=== PATIENT | female | born 1980 | race Caucasian/White ===

== ENCOUNTER 2024-05-01 16:18 | Outpatient (OUT) | payer BC, SELFPAY ==
--- NOTE | 2024-05-01 16:23 | US_ITS ---
The [address] [address] Patient Name: TREVOR BARON MRN: [id number] date: 1980 Sex: F Assigned Patient Location: US Current Patient Location: LAB Accession/Order Number: [id number] Exam Date: 05/01/2024 17:29 Report Date: 05/03/2024 11:17 At the request of: LUIS ALBERTO BOWDEN Procedure: US thyroid EXAMINATION: US thyroid HISTORY: Swelling, mass or lump in head neck, R22.0,R22.1 COMPARISON: No relevant comparison available. FINDINGS: RIGHT LOBE: Normal size and echotexture. Lobe size: 4.6 x 1.2 x 1.3 cm LEFT LOBE: Normal size and echotexture. Lobe size: 4.9 x 1.4 x 1.3 cm ISTHMUS: Normal size and echotexture. Thickness: 2 mm US/US thyroid IMPRESSION: 1. Normal thyroid ultrasound. No abnormal or suspicious findings. Electronically authenticated by: NIMO HAJI Date: 05/03/2024 11:17
== END 2024-05-01 16:19 | disposition home or self-care (01) ==
LOC: US 16:18
PROVIDERS: PCP Nurse Practitioner Family; Visit Provider Nurse Practitioner Family
DX: R22.0 Localized swelling, mass and lump, head (principal); R22.1 Localized swelling, mass and lump, neck
CPT/HCPCS: 76536

== ENCOUNTER 2024-05-04 07:08 | Outpatient (OUT) | payer BC, SELFPAY ==
--- OUTSIDE RECORDS SUMMARY | 2024-05-04 07:10 | XMS_ITS | CCD ---
Author Organization [facility] Care Team Providers Care Staff Sonographer Name Role Phone Nikki Patricia Primary Care Provider ZAHRA MART Referring Unavailabl e NIKKI PATRICIA Primary Care Unavailable ZAHRA MART Referring Unavailabl NIKKI Doll Primary Care Unavailable MD Nikki Patricia Primary Care Provider [phone] MD Aries Sheehan Attending Provider Asaad, Imad Unavailable PAY ., DR ROMAN Attending Unavailable ADITHYA, DR NIMO Castro Consulting Unavailable HARSHAD, DR MARIA Primary Care Unavailable PAY ., DR ROMAN Admitting Unavailable PAY ., DR ROMAN Consulting Unavailable OMARICHNY ., JATIN PENA Consulting Unavailabl e Asaad, Imad Attending Unavailable Nikki Patricia Primary Care Unavailable Asaad, Imad Admitting Unavailable Asaad, Imad Attending Unavailable Nikki Patricia Primary Care Unavailable Asaad, Imad Admitting Unavailable Allergies Allergy Classification Reported Allergen(s) Allergy Type Date of Onset Reaction(s) Facility (5 sources) Sulfamethoxazole / Trimethoprim Drug Allergy 8 [place], [place] (1 source) Sulfamethoxazole / Trimethoprim Drug Allergy 6 [facility] (2 sources) Sulfamethoxazole; Translations: [sulfamethoxazole] Drug Allergy 3 [facility] (2 sources) Trimethoprim; Translations: [trimethoprim] Drug Allergy 3 [facility] Medications Current Medications Medication Drug Class(es) Dates Sig (Normalized) Sig (Original) docusate sodium 50 mg / sennosides, fci 8.6 mg oral tablet (2 sources) take 8.6-50 mg by mouth once senna-docusate (PERICOLACE) 8.6-50 MG per tablet Take 1 tablet by mouth daily 0 Active hyoscyamine sulfate 0.125 mg oral tablet (1 source) Start: 12-20-2022 Hyoscyamine Sulfate Active 0.125 MG PO As Directed December 20, 2022 12:00am MiraLax 17 GM/SCOOP (3 sources) take 17 g by mouth once daily MiraLax 17 GM/SCOOP as directed Orally daily Active omeprazole 20 mg delayed release oral capsule (2 sources) Proton Pump Inhibitor take 1 capsule by mouth once daily omeprazole (PRILOSEC) 20 MG delayed release capsule Take 20 mg by mouth daily 0 Active ondansetron 4 mg disintegrating oral tablet (1 source) Serotonin-3 Receptor Antagonist Start: 12-20-2022 Ondansetron Active 4 MG PO As Directed December 20, 2022 12:00am polyethylene glycol 3350 538297 mg / potassium chloride 2970 mg / sodium bicarbonate 6740 mg / sodium chloride 5860 mg / sodium sulfate 85653 mg powder for oral solution (2 sources) Osmotic Laxative Start: 11-22-2022 Golytely 236 GM as directed Orally as directed for 1 days please check allergies pt to follow instructions given to her Nov, Active RABEprazole sodium 20 mg delayed release oral tablet (6 sources) Proton Pump Inhibitor Start: 05-20-2021 take 20 mg by mouth once daily Rabeprazole Active 20 MG PO Daily December 20, 2022 12:00am Start: 03-14-2018 take 1 tablet by once daily RABEprazole (ACIPHEX) 20 MG tablet TAKE ONE TABLET BY MOUTH DAILY 5 03/14/2018 Active sennosides, fci 8.6 mg oral tablet (1 source) Start: 01-06-2023 take 2 tablets by mouth every twenty-four hours Sennosides 8.6 MG 2 tablets at bedtime as needed Orally Once a day for 30 days Dec, Active Problems Problem Classification Problem Date Documented Da te Episodic/Chronic Abdominal pain (8 sources) Unspecified abdominal pain; Translations: [Lower abdominal pain, unspecified] Onset: Episodic Esophageal disorders (5 sources) Gastroesophageal reflux disease; Translations: [Gastro-esophageal reflux disease without esophagitis] Onset: 3 Chronic Gastrointestinal hemorrhage (3 sources) Melena; Translations: [Hematochezia] Episodic Nausea and vomiting (3 sources) Nausea; Translations: [Nausea] Episodic Nonmalignant breast conditions (1 source) Discharge from nipple; Translations: [Nipple discharge] Episodic Other aftercare (1 source) Other mcfp (current) drug therapy; Translations: [OTH ASSISTED CURRENT DRUG THERAPY] Onset: 3 Episodic Other gastrointestinal disorders (3 sources) Irritable bowel syndrome characterized by constipation; Translations: [Irritable bowel syndrome with constipation] Chronic Other gastrointestinal disorders (3 sources) Irritable bowel syndrome; Translations: [Irritable bowel syndrome without diarrhea] Chronic Other gastrointestinal disorders (1 source) Irritable bowel syndrome with constipation; Translations: [IRRITABLE BOWEL SYND W/CONSTIPATION] Onset: 3 Chronic Other gastrointestinal disorders (3 sources) Constipation; Translations: [Constipation, unspecified] Episodic Other gastrointestinal disorders (3 sources) Abdominal bloating; Translations: [Abdominal distension (gaseous)] Episodic Other gastrointestinal disorders (2 sources) Constipation, unspecified Episodic Other nutritional; endocrine; and metabolic disorders (3 sources) Obese class I; Translations: [Body mass index (BMI) 31.0-31.9, adult] Chronic Results Test Name Value Interpretation Reference Range Facility HCG ( test) Michelle jones Ql (U)Ordered By: Aries Sheehan on 12-21-2022 HCG ( test) Ql (U) Negative [facility] HCG,Urineon 12-21-2022 Beta HCG ( test) Ql (U) Negative Normal [facility] Comment on above: Result Comment: PERF ORMED BY: [place] [address] PATHOLOGIST [employer] MECHANIC REYES GODINEZ M.D. Performed By: #### U HCG #### [address] [place] 12-21-2022 L -- ---- Specimen: Received: 12/21/22 Status: WILLIS Maryann Num: [id number] Spec Type: Surgical Subm Dr: Aries Sheehan MD Tissues: A Colon Biopsy (ASCENDING) Procedures: HE/2, Gross/Micro L4 ---- Age/ Patient Sex Location Account Attending Physician ---- Trevor Encarnacion 41/F [id number] Aries Sheehan MD ---- SPEC NUM: RECD: 12/21/22 STATUS: WILLIS MARYANN NUM: [id number] HENRRY: 12/21/22 [facility] DR: Aries Sheehan MD ENTERED: 12/21/22 ALLAN WHITT: KODI TYPE: Surgical DEPT: S ORDERED: HE/2, Gross/Micro L4 ORDERED: HE/2, Gross/Micro L4 Pathological Diagnosis Colon, ascending, lipoma, biopsy: - Benign colonic mucosal fold. - Separate minute fragment of mature adipose tissue suggestive of submucosal lipoma. Clinical Information Left side abdomen pain, constipation Gross Description Received in formalin labeled with the patient's name, number and ascending colon lipoma biopsy is one fragment of soft vann tissue measuring 0.5 x 0.4 x 0.2 cm. Entirely submitted in one cassette labeled A1. Microscopic Description Two glass slides with H E stained material have been examined. The microscopic findings support the above pathologic diagnosis. CPT Codes 56284 ---- ---- Specimen: Received: 12/21/22 Status: WILLIS Webberfrancia Num: [id number] Spec Type: Surgical Subm Dr: Aries Sheehan MD Tissues: A Colon Biopsy (ASCENDING) Procedures: DARINEL, Gross/Micro L4 ---- Patient: Trevor Encarnacion [id number] (Continued) ---- Signed (signature on file) Alondra Parker MD 12/22/22 1016 Normal [facility] CT abdomen pelvis w conon CT abdomen pelvis w [facility] [place] [address] CT Scan Report Signed Patient: Trevor Encarnacion MR#: [id number] 4000 : 1980 Acct:[id number] Age/Sex: 41 / F ADM Date: 12/02/22 Loc: CT Room: Type: [facility] Attending Dr: Aries Sheehan MD Copies to: Aries Sheehan MD Ordering Provider: Aries Sheehan MD Date of Service: 12/02/22 CT/CT abdomen pelvis w con: Left sided abdominal pain CT ABDOMEN AND PELVIS WITH INTRAVENOUS CONTRAST: CLINICAL HISTORY: Left-sided abdominal pain with constipation and diarrhea COMPARISON: None TECHNIQUE: Spiral images were obtained through the abdomen and pelvis following the administration of intravenous contrast. This CT exam was performed using one or more following dose reduction techniques: Automated exposure control, adjustment of the mA and/or kV according to patient size, or use of iterative reconstruction technique. FINDINGS: Lung Bases: [No acute findings.] Organs:Liver gallbladder spleen pancreas and adrenal glands all appear unremarkable. No enhancing renal mass or hydronephrosis. Abdominal aorta appears normal in caliber.[ GI: Stomach is grossly unremarkable. Small bowel appears nondilated. No acute colonic abnormality is seen.[ Pelvis:[Tubal ligation clips. Uterus is grossly unremarkable. Urinary bladder is grossly unremarkable.] Peritoneum/Retroperito neum:No free air, free fluid or lymphadenopathy.[ Abd wall/Bones:Abdominal wall demonstrate no acute findings. Osseous structures demonstrate mild degenerative change.[ CT/CT abdomen pelvis w con IMPRESSION: No acute process. Impression dictated by: Lb Pa Jr., D.OJin12/02/2022 4:33 PM Dictation Location: [place] [address] Transcribed By: [facility] 12/02/22 1633 Dictated By: Lb Pa Jr, DO 12/02/22 163 Signed By: 12/02/22 1633 Normal [facility] ER URINE PROFILEon 3 Bilirubin Ql (U) Negative Normal NEGATIVE [facility] Comment on above: Performed By: #### E RUR #### [facility] [address] [place] [address] Dr. Humberto Chandra Clarity (U) SL CLOUDY Abnormal CLEAR [facility] Comment on above: Performed By: #### E RUR #### [facility] [address] [place] [address] Dr. Humberto Chandra Color (U) YELLOW Normal YELLOW [facility] Comment on above: Performed By: #### E RUR #### [facility] [address] [place] [address] Dr. Humberto WINN A micrscopic examination will be performed if indicated. Normal [facility] Comment on above: Performed By: #### E RUR #### [facility] [address] [place] [address] Dr. Humberto Chandra Glucose Ql (U) Negative Normal NEGATIVE [facility] Comment on above: Performed By: #### E RUR #### [facility] [address] [place] [address] Dr. Humberto Chandra Hemoglobin Ql (U) Negative Normal NEGATIVE [facility] Comment on above: Performed By: #### E RUR #### [facility] [address] [place] [address] [address] Humberto Chandra Ketones Ql (U) Negative Normal NEGATIVE [facility] Comment on above: Performed By: #### E RUR #### [facility] [address] [place] [address] Dr. Humberto Chandra LEUKOCYTES Negative Normal NEGATIVE [facility] Comment on above: Performed By: #### E RUR #### [facility] [address] [place] [address] Dr. Humberto Chandra Nitrite Ql (U) Negative Normal NEGATIVE [facility] Comment on above: Performed By: #### E RUR #### [facility] [address] [place] [address] [address] Humberto Chandra pH (U) 6.0 [pH] Normal 5-9 [facility] Comment on above: Performed By: #### E RUR #### [facility] [address] [place] [address] Dr. Humberto Chandra SPEC GRAVITY 1.015 Normal 1.005-<=1.025 [facility] Comment on above: Performed By: #### E RUR #### [facility] [address] [place] [address] Dr. Humberto Chandra UA PROTEIN Negative Normal NEGATIVE/ TRACE [facility] Comment on above: Performed By: #### E RUR #### [facility] [address] [place] [address] Dr. Humberto Chandra UR MICRO IND NOT INDICATED Normal [facility] Comment on above: Performed By: #### E RUR #### [facility] [address] [place] [address] Dr. Humberto Chandra Urobilinogen Qn (U) 0.2 {Shanna'U}/dL Normal 0.2 - 1. 0 [facility] Comment on above: Performed By: #### E RUR #### [facility] [address] [place] [address] Dr. Humberto Chandra XR KUB 1 VIEWon 11-12-2022 XR KUB 1 VIEW EXAMINATION: XR KUB 1 VIEW HISTORY: Pain ; lower abdominal pain, intermittent nausea COMPARISON: No relevant comparison available. FINDINGS: BOWEL GAS PATTERN: Large amount of stool within the ascending, transverse, descending colon. Air-filled sigmoid colon, and relatively empty rectal vault. CALCIFICATIONS: None significant. OTHER: Bilateral fallopian tube clips within the pelvis. IMPRESSION: 1. No bowel obstruction or suspicious findings. 2. Moderate stool burden. Electronically authenticated by: NIMO HAJI Date: 2022-11-12 13:56 Normal [facility] Cult,Aerobeon 02-01-2020 Cult,Aerobe Specimen Description .BREAST FLUID SWAB Special Requests NIPPLE DISCHARGE Direct Exam NO NEUTROPHILS SEEN NO BACTERIA SEEN Culture NORMAL SKIN RACHID Report Status FINAL 02/01/2020 [facility] Comment on above: Performed By: #### M ISCU #### [place] [address] [place] [address] Maintenance Painter: Robert Eugene MD [facility] [address] [place] [address] Dr. [place], [place] [id number] Maintenance Painter: Isauro Arango MD Non-Teacher Drama Cytologyon 0 Case No: [id number] [facility] Comment on above: Performed By: #### N HEALTHCARE MANAGER #### [address] [address] Maintenance Painter: Robert Eugene MD [facility] [address] [place] [address] Dr. [place], [place] [id number] Maintenance Painter: Isauro Arango MD Case No: [id number] [facility] Comment on above: Performed By: #### N HEALTHCARE MANAGER #### [address] [address] Maintenance Painter: Robert Eugene MD [facility] [address] [place] [address] Dr. [place], [place] [id number] Maintenance Painter: Isauro Arango MD Prolactinon 01-30-2020 Prolactin 16.19 ug/L Normal 4.79-23.30 [facility] Comment on above: Result Comment: The presence of macroprolactin may cause interference in female patients with various endocrinological diseases or during . Performed By: #### H CG #### [facility] [address] [place] [address] Dr. [place], [place] [address] Maintenance Painter: Isauro Arango MD #### PROL #### [address] [address] Maintenance Painter: Robert Eugene MD HCG Qualitative, Serumon hCG Qual Negative NEGATIVE [place], [place] Comment on above: Specimens with hCG l evels near the threshold of the test (25 mIU/mL) may give a negative or indeterminate result. In such cases, another test should be performed with a new specimen in 48-72 hours. If early is suspected clinically in this setting, correlation with quantitative serum b-hCG level is suggested. [facility] the use of plasma for this test. This has not been cleared or approved by the U.S. Food and Drug Administration. The FDA has determined that such clearance is not necessary. HCG Screen, Bloodon 01-29-20 20 HCG Qn Negative Normal NEG [facility] Comment on above: Result Comment: Spec imens with hCG levels near the threshold of the test (25 mIU/mL) may give a negative or indeterminate result. In such cases, another test should be performed with a new specimen in 48-72 hours. If early is suspected clinically in this setting, correlation with quantitative serum b-hCG level is suggested. [facility] has confirmed the use of plasma for this test. This has not been cleared or approved by the U.S. Food and Drug Administration. The FDA has determined that such clearance is not necessary. Performed By: #### H #### [facility] [address] [facility] [place] [address] Maintenance Painter: Isauro Arango MD #### PROL #### [address] [address] Maintenance Painter: Robert Eugene MD Histology [facility] 01-28 Histology [facility] (NOTE) -- Diagnosis -- LEFT NIPPLE DISCHARGE SMEAR: Amorphous material, acellular. RIGHT NIPPLE DISCHARGE SMEAR: Amorphous material, acellular. Sylvie Nesbitt Electronically Signed Out rdd/01/30/2020 Clinical Information Nipple discharge N64.52. Source of Specimen 1: LEFT NIPPLE DISCHARGE SMEAR 2: RIGHT NIPPLE DISCHARGE SMEAR Gross Description 1. LEFT BREAST one prepared slide received. 2. RIGHT BREAST one prepared slide received. MICROSCOPIC DESCRIPTION 1, 2. Microscopic examination performed. NONGYNECOLOGICAL CYTOPATHOLOGY CONSULTATION Patient Name: TREVOR KIRKLAND [facility] Rec: [id number] Path Number: [id number] [facility] ANATOMIC PATHOLOGY [address] [place] [phone] [facility] Comment on above: Performed By: #### P PPVS #### [facility] [address] [place] [address] Maintenance Painter: Robert Eugene MD Non-Teacher Drama Cytologyon 0 Specimen Description NIPPLE DISCHARGE [facility] Comment on above: Performed By: #### N HEALTHCARE MANAGER #### [address] [address] Maintenance Painter: Robert Eugene MD [facility] [address] [place] [address] Maintenance Painter: Isauro Arango MD Specimen Description NIPPLE DISCHARGE [facility] Comment on above: Performed By: #### N HEALTHCARE MANAGER #### [address] [address] Maintenance Painter: Robert Eugene MD [facility] [address] [place] [id number] Maintenance Painter: Isauro Arango MD Prolactinon 01-29-2020 Prolactin 16.19 ug/L 4.79 - 23.3 ug/L [place], [place] Comment on above: The presence of macr oprolactin may cause interference in female patients with various endocrinological diseases or during . Coding Summary.on 03-02-2019 Coding Summary. CODING DATE: 03/02/2019 FINAL [facility] STATUS: Home (Routine DC) PAYOR: Commercial Insurance APC DESCRIPTION 5372 Level 2 Urology and Related Services 5721 Level1 Diagnostic Tests and Related Services ADMIT DX: REASON FOR VISIT DX: N35.92 Unspecified urethral stricture, female FINAL DX: PRINCIPAL: N35.92 Unspecified urethral stricture, female SECONDARY: R32 Unspecified urinary incontinence R33.9 Retention of urine, unspecified R35.0 Frequency of micturition R39.12 Poor urinary stream R39.14 Feeling of incomplete bladder emptying Z87.440 Personal history of urinary (tract) infections Z87.891 Personal history of nicotine dependence PYMT PROC APC STAT DESCRIPTION DOCTOR NAME DATE NOTE: The code number assigned matches the documented diagnosis and / or procedure in the patient's chart. However, the narrative phrase printed from the coding software may appear abbreviated, or result in slightly different terminology. Coded By: Jennifer Drew Date Saved: 03/02/2019 11:25 am [facility] Coding Summary.on 12-08-2018 Coding Summary. 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 However, the narrative phrase printed from the coding software may appear abbreviated, or result in slightly different terminology. Coded By: Alyson Peres Date Saved: 12/08/2018 03:25 pm [facility] Main OR Intraoperative Recor don 12-07-2018 Main OR Intraoperative Record IntraOp Document Type FTURO Summary Primary Physician: Anthony Mart Jr., MD Finalized Date/Time: 12/07/18 15:29:06 Pt. Name: TREVOR KIRKLAND/Sex: 1980 Female Med Rec #: [id number] Physician: Anthony Mart Jr., MD Financial #: [id number] Pt. Type: O Room/Bed: / Admit/Disch: 12/07/18 15:14:24 - Institution: Case Times FTURO Entry 1 Patient Times In Room 12/07/18 15:21:00 Out Room 12/07/18 15:31:00 Procedure Times Start 12/07/18 15:24:00 Stop 12/07/18 15:27:00 Anesthesia Times Last Modified By: Joyce BAILEY, Judy GUEVARA 12/07/18 15:27:40 Case Attendance FTURO Entry 1 Entry 2 Entry 3 Case Attendee Anthony Mart Jr., MD L Joyce RN, CNOR, Delon GIBSON, Mery Kim Role Performed Surgeon - Primary Fraud Investigator - Primary Scrub - Primary Time In 12/07/18 15:21:00 12/07/18 15:21:00 12/07/18 15:21:00 Time Out 12/07/18 15:31:00 12/07/18 15:31:00 12/07/18 15:31:00 Procedure CYSTOSCOPY LOCAL WITH CYSTOSCOPY LOCAL WITH CYSTOSCOPY LOCAL WITH URETHRAL DILATION(.) URETHRAL DILATION(.) URETHRAL DILATION(.) Comments Last Modified By: Joyce RN, CNOR, Joyce BAILEY, ELISSAOR, Joyce BAILEY, ELISSAOR, Judy 12/07/18 Judy 12/07/18 Judy 12/07/18 15:27:42 15:27:42 15:27:42 Surgical Procedures FTURO Entry 1 Procedure Description Procedure CYSTOSCOPY LOCAL WITH Modifiers . URETHRAL DILATION Surgeon Description cysto with urethral dilatation Primary Procedure Yes Primary Surgeon Barron Monroy MD, Anthony Oneil Start 12/07/18 15:24:00 Stop 12/07/18 15:27:00 Anesthesia Type Local Surgical Service Urology Wound Class 2 - Clean-Contaminated Last Modified By: ISMAEL Cook RN, Ruthann 12/07/18 15:27:48 General Case Data FTURO Pre-Care Text: Classifies surgical wound, implements aseptic technique, initiates traffic control Entry 1 Case Information OR URO 1 FT Case Level None Wound Class 2 - Clean-Contaminated Specialty Urology Preop Diagnosis STRESS INCONTINENCE UTI Postop Same As Preop No Postop Diagnosis urethral stricture Outcomes Met? Yes Last Modified By: ISMAEL Cook RN, Judy 12/07/18 12:58:32 Post-Care Text: The patient is free from signs and symptoms of infection EU IntraOp - FTURO Pre-Care Text: Implements protective measures prior to operative or invasive procedure, confirms identity before the operative or invasive procedure, verifies operative procedure, surgical site, and laterality Entry 1 EU Perioperative Protocols Procedure(s) CYSTOSCOPY LOCAL WITH Patient Identity Birthday, ID Band Check URETHRAL DILATION(.) Verified (select at least 2): Consents / H and P HandP, Surgery/Procedure Operative Site N/A Verified Consent Marking Verified Surgical Site Yes Laterality Verified n/a Verified Procedure Verified Yes Correct Patient Yes Position Verified Availability Equipment, Medication Time Out Anthony Mart Jr., MD, Verified (If Participants Jernigan FLATWORK CATCHER, Mery, Applicable) ISMAEL Cook RN, Ruthann Time Out Complete 12/07/18 15:23:00 Allergies Reviewed? Yes Allergies Reviewed Self/Patient With Body Position Frog Legged Prep Area perineal area Prep Agents Betadine Solution Skin. Condition Intact Additional None Specimens Collected Vitals - EU Blood Pressure 110/62 Pulse 60 bpm Respirations SPO2 EBL 0 IandO - EU Total Intake 0 mL Total Output 0 mL Outcomes Met? Yes Last Modified By: ISMAEL Cook RN, Ruthann 12/07/18 15:29:03 Post-Care Text: The patient is free from signs and symptoms of injury caused by extraneous objects Case Comments Finalized By: ISMAEL Cook RN, Ruthann Document Signatures Signed By: ISMAEL Cook RN, Ruthann 12/07/18 15:29 Normal [facility] Main OR Preoperative Recordo n 12-07-2018 Main OR Preoperative Record Holding Area Document Type FTURO Summary Primary Physician: Anthony Mart Jr., MD Finalized Date/Time: 12/07/18 15:27:28 Pt. Name: TREVOR KIRKLAND/Sex: 1980 Female Med Rec #: [id number] Physician: Anthony Mart Jr., MD Financial #: [id number] Pt. Type: O Room/Bed: / Admit/Disch: 12/07/18 15:14:24 - Institution: Case Times Holding FTURO Pre-Care Text: Verifies consent for planned procedure, identifies individual values and wishes concerning care, includes family members in perioperative teaching Secures patient's records' belongings, and valuables, maintains patient's dignity and privacy, and maintains patient confidentiality Entry 1 In Holding 12/07/18 15:18:00 Outcomes Met? Yes Last Modified By: Leslie Ziegler LPN 12/07/18 15:18:23 Post-Care Text: The patient participates in decisions affecting his or her perioperative plan of care The patient's right to privacy is maintained Surgery Checklist FTURO Entry 1 Patient Birthday, ID Band Procedure History and Physical, Identification: Check, Patient Verification: Surgical Consent, With Participation Patient NPO after Midnight: n/a Personal Items: Contact Lenses Complaints of Pain: No Skin Integrity Intact, [place], Warm, & Dry Vitals - EU Blood Pressure 111/63 Pulse 59 bpm Respirations 16 br/min SPO2 RN Reviewed Yes Last Modified By: ISMAEL Cook RN, Ruthann 12/07/18 15:27:25 Finalized By: ISMAEL Cook RN, Ruthann Document Signatures Signed By: Leslie Ziegler LPN 12/07/18 15:21 ISMAEL Cook RN, Ruthann 12/07/18 15:27 Normal [facility] Operative Reporton 9 Operative Report Patient: TREVOR KIRKLAND Age: 37 years Sex: Female : 1980 Associated Diagnoses: None Author: Anthony Mart Jr., MD Procedure Operative Information Details: Date/ Time: 12/07/18 15:28:00. Pre-Op Dx: Urgency Incontinence - N39.41, Frequency - R35.0, Urgency - R39.15, Urethral Stricture - Female Post Trauma Urethral Stricture Female - N35.028. Post-Op Dx: Same. Anesthesia Type: Local. Procedure: Local Cystoscopy with Urethral Dilation. Complications: None. Risks/Benefits/Informe d Consent: Surgical risks, benefits, details of the procedure have been explained to the patient, Full informed consent has been obtained. Intraoperative Information Prepped: Patient is brought back to the endoscopy suite, Patient is placed in modified dorso/lithotomy position, Patient prepped in the usual fashion with Betadine solution, 2% Xylocaine Jelly is placed per Urethra, After waiting several minutes the Cystoscope is introduced. The Urethra is: Tight. The Bladder is: Normal, Trabeculated None (0). The ureteral orifices: Show efflux of clear urine. The Urethra was dilated to: 28 Finnish w/ sounds. Devices Implanted: None. Removal: Cystoscope is removed, The patient tolerated it well. Postoperative Information Discharge: Patient is discharged home with antibiotic coverage, Follow up arranged. Normal [facility] Comment on above: Result Comment: Elec tronically Signed By: Anthony Mart Jr., MD\.br\Date and Time Signed: 12/07/18 15:29 EDT Progress Noteon 01-11-2018 HIM IP Note OR [employer] Normal [facility] Vital Signs Date Time Vital Sign Value Performing Clinician Facility 01-06-2023 09:45-0400 Body height 160.02 cm Imad Asaad Other [facility] Other 01-06-2023 09:45-0400 Body mass index (BMI) [Ratio] 34.89 kg/m2 Imad Asaad Other [facility] Other 01-06-2023 09:45-0400 Body weight 89.36 kg Imad Asaad Other [facility] Other 01-06-2023 09:45-0400 Diastolic blood pressure 74 mm[Hg] Imad Asaad Other [facility] Other 01-06-2023 09:45-0400 Systolic blood pressure 118 mm[Hg] Imad Asaad Other [facility] Other 12-21-2022 08:51-0400 Diastolic blood pressure 80 mm[Hg] MD Nikki Patricia Work Phone: [facility] 12-21-2022 08:51-0400 Heart rate 64 /min MD Nikki Patricia Work Phone: [facility] 12-21-2022 08:51-0400 Respiratory rate 18 /min MD Nikki Patricia Work Phone: [facility] 12-21-2022 08:51-0400 SaO2% (BldA) [Mass fraction] 100 % MD Nikki Patricia Work Phone: [facility] 12-21-2022 08:51-0400 Systolic blood pressure 117 mm[Hg] MD Nikki Patricia Work Phone: [facility] 12-21-2022 07:38-0400 Body height 160.02 cm MD Nikki Patricia Work Phone: [facility] 12-21-2022 07:38-0400 Body temperature 99.1 [degF] MD Nikki Patricia Work Phone: [facility] 12-21-2022 07:38-0400 Body weight 86.18 kg MD Nikki Patricia Work Phone: [facility] 11-22-2022 09:45-0500 Body height 160.02 cm Imad Asaad Other [facility] Other 11-22-2022 09:45-0500 Body mass index (BMI) [Ratio] 34.89 kg/m2 Imad Asaad Other [facility] Other 11-22-2022 09:45-0500 Body temperature Imad Asaad Other [facility] Other 11-22-2022 09:45-0500 Body weight 89.36 kg Imad Asaad Other [facility] Other Encounters Encounter Date Encounter Type Care Provider Facility Start: 01-06-2023 End: 01-06-2023 ambulatory Imad Asaad Other [facility] Other Start: 01-06-2023 Office outpatient visit 25 minutes Imad Asaad [facility] Start: 12-21-2022 End: 12-21-2022 ambulatory Imad Asaad Facility:[facility] Start: 12-21-2022 End: 12-21-2022 Admission to same day surgery center MD Nikki Patricia Work Phone: [facility] Work Phone: Start: 12-21-2022 End: 12-21-2022 ambulatory MD Nikki Patricia Work Phone: [facility] Work Phone: Start: 12-02-2022 End: 12-02-2022 ambulatory Imad Asaad Facility:[facility] Start: 12-02-2022 End: 12-02-2022 ambulatory MD Nikki Patricia Work Phone: [facility] Work Phone: Start: 12-02-2022 End: 12-02-2022 Patient encounter procedure MD Nikki Patricia Work Phone: [facility] [place] Work Phone: Start: 11-23-2022 End: 11-23-2022 ambulatory Imad Asaad Other [facility] Other Start: 11-23-2022 Telephone encounter Imad Asaad [facility] Start: 11-22-2022 End: 11-22-2022 ambulatory Imad Asaad Other [facility] Other Start: 11-22-2022 Office outpatient ne w 45 minutes Imad Asaad [facility] Start: 11-12-2022 End: 11-12-[address] JESSIE LUCERO . Facility: Start: 01-29-2020 End: 01-30-2020 Patient encounter procedure [facility] Start: 01-29-2020 End: 01-29-2020 Patient encounter procedure [facility] Start: 01-29-2020 End: 01-29-2020 Subsequent hospital visit by physician [facility] Start: 01-29-2020 End: 01-29-2020 Subsequent hospital visit by physician [facility] Comment on above: Nipple discharge Procedures Date Procedure Procedure Detail Performing Clinician Start: 12-21-2022 Colonoscopy MD Nikki olea Work Phone: Start: 12-02-2022 Computed tomography of abdomen and pelvis with contrast MD Nikki Patricia Work Phone: Start: 01-29-2020 Assay of prolactin LINO MART Start: 01-29-2020 Cul bact xcpt urine blood/stool aerobic isol ZAHRA MART Start: 01-29-2020 Cytopath fl nongyn, sm/fltr ZAHRA MART Start: 01-29-2020 Gonadotropin chorion ic qualitative ZAHRA MART Start: 01-29-2020 Assay of prolactin Lino Mart Work Phone: Start: 01-29-2020 Gonadotropin chorion ic qualitative Zahra Mart Work Phone: Plan of Treatment Date Care Activity Detail Author Start: 01-11-2023 Screening for malign ant neoplasm of cervix Cervical cancer screen [place], [place] Start: 12-21-2022 [facility] Start: 01-28-2021 Diabetes screen Diabetes screen [place], [place] Comment on above: Postponed from 12/31 (Not Indicated) Start: 01-28-2021 Lipid panel Lipid screen [place], [place] Comment on above: Postponed from 12/31 (Not Indicated) Start: 05-20-2020 Influenza vaccination Flu vacc ine (Season Ended) [place], [place] Start: 02-19-2020 DTaP/Tdap/Td vaccine (2 - Td) DTaP/Tdap/Td vaccine (2 - Td) [place] Comment on above: Postponed from 01/11 (Not Indicated) End: 01-29-2020 Culture, Aerobic Culture, Aerobic Microbiology Routine Once for 1 Occurrences starting 01/29/2020 until 01/29/2020 [place] Comment on above: Once for 1 Occurrenc es starting 01/29/2020 until 01/29/2020 Culture, Aerobic Culture, Aerobi c Microbiology Routine 01/29/2020 4:15 PM EDT [place] End: 01-29-2020 Cytology, Non-Teacher Drama Cytology, Non-Teacher Drama Lab Routine Nipple discharge 1 Occurrences starting 01/29/2020 until 01/29/2020 [place] Comment on above: 1 Occurrences starti ng 01/29/2020 until 01/29/2020 Cytology, Non-Teacher Drama Cytology, Non- Teacher Drama Lab Routine Nipple discharge 01/29/2020 4:15 PM EDT [place], [place] Patient Education Hemorrhoids (DC) [facility] Work Phone: Immunizations Immunization Date Immunization Notes Care Provider Hernandez hammernalini 01-12-2008 tetanus toxoid, redu marissa diphtheria toxoid, and acellular pertussis vaccine, adsorbed [place], [place] Payers Date Payer Category Payer Self-pay [id number] 2019 Unknown UMR UMR [id number] 2019-Present [address] [place] [address] xxxxxxxx [id number] 2019 Unknown [id number] 1980 Unknown [id number] 1980 Unknown [id number] 1978 Unknown [id number] 1959 Unknown [id number] Private Health Insurance [employer] [id number] Unknown [id number] Unknown [id number] Social History Date Type Detail Facility Start: 01-29-2020 End: 12-21-2022 Tobacco smoking status NHIS Never smoker [facility] Start: 01-29-2020 Alcohol intake Current drinke r of alcohol (finding) [place], [place] Start: 01-11-2018 Alcohol Comment social [facility] [place] Sex Assigned At Not on file [place], [place] Exposure to SARS-CoV-2 (event) [facility] Start: 1980 Sex Assigned At Female F [facility] Sex Assigned At Sex Assigned At Bir th [facility] [email or web address] Other Goals Date Patient Goal Desired Activity /State Evaluation note 01-06-2023 Note Date & Type Note Facility 01-06-2023 Evaluation note Encounter Date Diagnosis Assessment Notes Dec, Constipation (ICD-10 - K59.00) Dec, Blood in stool (ICD-10 - K92.1) Dec, Left sided abdominal pain (ICD-10 - R10.9) [facility] [email or web address] Other Procedure note 12-21-2022 Note Date & Type Note Facility 12-21-2022 Procedure note [facility] Evaluation note 11-22-2022 Note Date & Type Note Facility 11-22-2022 Evaluation note Encounter Date Diagnosis Assessment Notes Nov, GERD (gastroesophage al reflux disease) (ICD-10 - K21.9) Nov, Left sided abdominal pain (ICD-10 - R10.9) Nov, Constipation (ICD-10 - K59.00) Obtain [facility] ER records Pt to start miralax day after bowel prep-titration discussed with patient Will arrange for colonoscopy Nov, Blood in stool (ICD-10 - K92.1) [facility] [email or web address] Other Evaluation note Note Date & Type Note Facility Evaluation note No assessment information availa [facility] Work Phone: Evaluation note Note Date & Type Note Facility Evaluation note No Information [facility] Desk Other History and physical note Note Date & Type Note Facility History and physical note Note Date/Time December 21, 2022 8:20 am [facility] [address] [place] [address] Gastroenterology H&P Signed Patient: Trevor Encarnacion MR#: [id number] : 1980 Acct:[id number] Age/Sex: 41 / F Adm Date: 04/04/2 3 Loc: Room: Type: [facility] Attending Dr: Aries Sheehan MD Copies to: MD Nikki Camp MD~ Date of Service: 12/21/2022 HISTORY & PHYSICAL: Patient's history with special attention to the cardiovascular, pulmonary systems and the current problem was reviewed with the patient immediately prior to the procedure. Present medications and doses reviewed in the EMR. Allergies and pertinent laboratory tests were also reviewedat this time in the EMR. The physical examination, as below, was then performed. Indication, assessment and HPI: 41-year-old female here for colonoscopy for evaluation of constipation hematochezia and abdominal pain Family history of GI malignancy? No PHYSICAL EXAMINATION Mouth and Pharynx : Moist mucus membranes, normal dentition Cardiac: Regular rate, regular rhythm Pulmonary: Clear to auscultation bilaterally, no wheezing Neurological: Alert and oriented x3, no focal deficits noted Abdomen: Abdomen soft, non-tender REVIEW OF SYSTEMS Constitutional: Denies malaise, fevers Cardiovascular: Denies chest pain, palpitations Respiratory: Denies shortness of breath, wheezing Gastrointestinal: Per HPI Genitourinary: Denies dysuria, polyuria Musculoskeletal: Denies joint swelling, joint stiffness Neurological: Denies numbness, tingling Integumentary: Denies rashes, skin lesions Endocrine: Denies fatigue, weight loss Written informed consent obtained from the patient. Risks (including but not limited to perforation, infection, bloating, bleeding, need for emergent surgery and loss of life), benefits and alternatives explained and questions answered. The patient verbalized understanding. Based on history patient is an appropriate candidate for the procedure. Aries Sheehan M.D. Documented By: Aries Sheehan MD 12/21/22818 Signed By: <Electronically signed by Aries Sheehan MD> 12/21/22819 [facility] Work Phone: History general Narrative - Reported Note Date & Type Note Facility History general Narrative - Reported Type Medical History Depression Medical History GERD Surgical History C section X 1 Surgical History cyst removal Surgical History appendectomy Surgical History TUBAL LIGATION Surgical History ABLATION Surgical History bladder suspension, unspecified Hospitalization History child [facility] Other Hospital Discharge instructions Note Date & Type Note Facility Hospital Discharge instructions Additional Instructions DISCHARGE INSTRUCTIONS FOR COLONOSCOPY WHAT TO EXPECT: - You may feel full, gassy or cramping after your procedure. In some cases, this may be from a few hours to a day. Walking may help relieve the discomfort. - If you have polyp(s) removed you may note some minor bloody discharge after your first bowel movements. - You should begin to recover from anesthesia within 1 hour of the procedure, however may feel groggy for the next 24 hours. DO's AND DON'Ts: - Call your doctor right away if you have a hard abdomen, severe pain, are passing lots of bright red blood or clots. - Call your doctor if you develop any rashes, hives or difficulty breathing. - Let your doctor know if you have not had a bowel movement by 3 days after your procedure. - If you take 81 mg aspirin for your heart it is safe to resume this medication. - If you take other blood thinner medications your doctor will instruct you when these can safely be resumed. - Do NOT drive for 24 hours. - Do NOT operate machinery such as power tools, [employer] mowers, [employer], sewing machines, etc. for 24 hours. - Avoid alcoholic beverages and drugs for allergies, nerves, or sleep. - Do NOT stay alone. Do NOT leave your child unattended. - Do NOT make important personal or business decisions or sign any legal documents. - Eat solid foods and drink liquids in smaller amounts than usual until normal appetite returns. If you should experience an upset stomach, liquids high in sugar content (soda, Win-Aid, non-acid juices) are recommended. - You can resume normal activities tomorrow. FOLLOW UP & RECOMMENDATIONS: -Take 25-35gm fiber/day, can add tablespoon of Metamucil once daily if needed, avoid dehydration. Can add Miralax 17gm PO Qday and titrate up to twice or three times daily if needed. -Notify the doctor if you have any problems. -Repeat colonoscopy in 10 years -Follow up with PCP. -Office number [phone]. [facility] Work Phone: Summary Purpose Family History Relationship Condition Age at Onset Recorded Date/T lynne father Type 2 diabetes mellitus Unknown Not Specified Type 2 diabetes mellitus Unknown Hypertension Unknown family member History of nephrectomy Unknown father Asthma Unknown Advance Directives Documents on File Type Date Recorded Patient Painting Instructor Expl anation Advance Directives and Living Will Power of Clinical Research Physician Advance Directive Response Recorded Date/ Time Advance Directives No April 25, 2 021 8:51am Assessments Diagnosis Nipple discharge Other sign and symptom in breast Chief Complaint and Reason for Visit Chief Complaint R10.9 Chief Complaint R10.9 Left Sided Abdominal Pain, Constipation, Blood in Additional Source Comments INFORMATION SOURCE (unrecogn ized section and content) DATE CREATED AUTHOR 03/09/2018 [facility] DATE CREATED AUTHOR AUTHOR'S ORGANIZ ATION 06/20/2019 [facility] DATE CREATED AUTHOR AUTHOR'S ORGANIZ ATION 02/01/2020 [facility] DATE CREATED AUTHOR AUTHOR'S ORGANIZ ATION 12/07/2022 [facility] DATE CREATED AUTHOR AUTHOR'S ORGANIZ ATION 12/27/2022 [facility] Care Teams (unrecognized sec tion and content) Team Status: Active Member Role Status Dates Nikki Patricia MD Primary Care Provider Active Team Status: Inactive Member Role Status Dates Nikki Patricia MD Primary Care Provider Active Aries Sheehan MD Attending Provider Active Goals (unrecognized section and content) Goals may be documented in a n alternate sectionNo InformationNo InformationNo Information REASON FOR VISIT (unrecogniz ed section and content) PATIENT IS HERE FOR GERD. OV ER DUE FOR FOLLOW UP. LAST EGD 2016. PT COMPLAINING OF LEFT SIDED ABDOMINAL PAIN, ALTERNATING DIARRHEA AND CONSTIPATION. PT WAS AT [facility] ER ON 11-12-22. SHE STATES ER TOLD HER SHE WAS CONSTIPATED AND BASICALLY GAVE HER A BOWEL PREP TO CLEAN HER OUT REFILLPATIENT IS HERE FOR FOLLOW UP FROM COLONOCOPY AND CT FOR RECORDS PERTAINING TO PATIENTS WHO ARE OR HAVE BEEN ENROLLED IN A CHEMICAL DEPENDENCY/SUBSTANCEABUSE PROGRAM, SOME INFORMATION MAY BE OMITTED. This clinical summary was aggregated from multiple sources. Caution should be exercised in using it in the provision of clinical care. This summary normalizes information from multiple sources, and as a consequence, information in this document may materially change the coding, format and clinical context of patient data. In addition, data may be omitted in some cases. CLINICAL DECISIONS SHOULD BE BASED ON THE PRIMARY CLINICAL RECORDS. [facility] provides no warranty or guarantee of the accuracy or completeness of information in this document.
[2024-05-04 07:22] LABS: Basophils Percent Auto 0.5 % (0.2-2.0); Eosinophils Absolute Auto 0.1 10^3/uL (0.0-0.7); Eosinophils Percent Auto 1.8 % (0.9-7.0); Hematocrit 37.9 % (36.0-48.0); Hemoglobin 12.6 g/dL (12.0-16.0); Immature Granulocytes Abs Auto 0.01 10^3/uL (0.00-0.03); Immature Granulocytes Pct Auto 0.2 % (0.0-0.5); Lymphocytes Absolute Auto 1.5 10^3/uL (1.2-3.8); Lymphocytes Percent Auto 23.8 % (20.5-60.0); Mean Corpuscular HGB Conc 33.2 g/dL (29.9-35.2); Mean Corpuscular Hemoglobin 32.4 pg (26.7-34.0); Mean Corpuscular Volume 97.4 fL (81.0-99.0); Mean Platelet Volume 9.9 fL (9.5-13.5); Monocytes Absolute Auto 0.5 10^3/uL (0.3-0.8); Monocytes Percent Auto 7.2 % (1.7-12.0); Neutrophils Absolute Auto 4.2 10^3/uL (1.4-6.5); Neutrophils Percent Auto 66.5 % (43.0-75.0); Platelet Count 240 10^3/uL (150-450); Red Blood Count 3.89 10^6/uL (4.20-5.40); Red Cell Distribution Width 12.1 % (11.0-15.0); White Blood Count 6.3 10^3/uL (4.0-11.0)
[2024-05-04 08:36] LABS: Percent Iron Saturation 38.8 %
[2024-05-04 08:47] LABS: Alanine Aminotransferase 37 U/L (14-59); Albumin Level 3.5 g/dL (3.4-5.0); Alkaline Phosphatase 61 U/L (46-116); Anion Gap 11.3; Aspartate Amino Transferase 22 U/L (15-37); BUN Creatinine Ratio 18.1; Bilirubin Total 0.5 mg/dL (0.2-1.0); Carbon Dioxide 27.7 mmol/L (21.0-32.0); Chloride 104 mmol/L (98-107); Cholesterol 189 mg/dL (<=200); Estimated GFR (African America >60 (>=60); Estimated GFR (Non-African Ame >60 (>=60); Globulin 3.4 g/dL; Glucose 90 mg/dL (74-106); HDL Cholesterol 63 mg/dL (40-60); Sodium 139 mmol/L (136-145); TSH W/ REFLEX FT4 2.038 uIU/mL (0.358-3.740); Total Protein 6.9 g/dL (6.4-8.2); Triglycerides 52 mg/dL (<=150); VLDL CHOLESTEROL 10.4 mg/dL
== END 2024-05-04 07:09 | disposition home or self-care (01) ==
LOC: LAB 07:08
PROVIDERS: PCP Nurse Practitioner Family; Visit Provider Nurse Practitioner Family
DX: R53.83 Other fatigue (principal); R63.5 Abnormal weight gain; Z13.220 Encounter for screening for lipoid disorders; R73.01 Impaired fasting glucose
CPT/HCPCS: 36415; 80053; 80061; 83540; 83550; 84443; 85025